=== PATIENT | female | born 2000 | race Caucasian/White ===

== ENCOUNTER 2023-02-22 07:52 | Emergency (ER) | payer MEDICAID, OTHER ==
[~2023-02-22] VITALS: Ht 165.1 cm; Wt 59.0 kg
[2023-02-22 07:59] VITALS: O2SAT 99
[2023-02-22] MEDS ORDERED: ONDANSETRON 4MG ODT PO STA (09:40)
[2023-02-22 10:05] LABS: HEMATOCRIT. 38.3 % (36.0-48.0); HEMOGLOBIN. 12.9 g/dL (12.0-16.0); MEAN CORPUSCULAR HEMOGLOBIN 31.1 pg (28.0-32.0); MEAN CORPUSCULAR HGB CONC 33.6 g/dL (31.0-37.0); MEAN CORPUSCULAR VOLUME 92.5 fL (81.0-99.0); MEAN PLATELET VOLUME 9.4 fl (7.4-10.4); PLATELET 253 x1000/uL (130-400); RED BLOOD CELL COUNT 4.14 mill/uL (4.2-5.4); RED CELL DISTRIBUTION WIDTH 13.2 % (11.6-14.6); WHITE BLOOD COUNT 7.2 x1000/uL (4.5-11.0)
[2023-02-22 10:10] LABS: CLARITY URINE CLEAR (CLEAR); COLOR URINE YELLOW (YELLOW)
[2023-02-22 10:11] LABS: GLUCOSE URINE NEGATIVE (NEGATIVE); KETONES URINE NEGATIVE (NEGATIVE); LEUKOCYTE ESTERASE URINE NEGATIVE (NEGATIVE); NITRITE URINE NEGATIVE (NEGATIVE); OCCULT BLOOD URINE NEGATIVE (NEGATIVE); PROTEIN URINE NEGATIVE (NEGATIVE); SPECIFIC GRAVITY URINE 1.015 (1.005-1.030); UROBILINOGEN URINE 0.2 E.U./dL (0.2-1.0)
[2023-02-22 10:14] LABS: DIFFERENTIAL COMMENT 1
[2023-02-22 10:18] LABS: ALANINE AMINOTRANSFERASE 8 IU/L (10-49); ALBUMIN 4.7 g/dL (3.2-4.8); ASPARTATE AMINOTRANSFERASE 18 IU/L (<34); BILIRUBIN TOTAL 0.5 mg/dL (0.1-1.0); CALCIUM 9.4 mg/dL (8.7-10.4); CARBON DIOXIDE 26 mEq/L (21-32); CHLORIDE 108 mEq/L (98-107); CREATININE 0.7 mg/dL (0.6-1.0); GLUCOSE 89 mg/dL (70-105); POTASSIUM 4.7 mEq/L (3.5-5.1); PROTEIN TOTAL 6.7 g/dL (6.0-8.3); SODIUM 141 mEq/L (136-145); UREA NITROGEN BLOOD 7 mg/dL (9-23)
[2023-02-22] MEDS ORDERED: ONDA4TAB50 MT ×2 (11:02)
[2023-02-22 11:14] VITALS: BP 109/57; PULSE 83; RESP 16; TEMP 98.4
[2023-02-22] MEDS ORDERED: TOPUD MT (11:14)
[2023-02-22] MEDS ORDERED: METO-293 MT (11:14)
[2023-02-22 11:52] LABS: PLATELET ESTIMATE NORMAL
== END 2023-02-22 11:36 | disposition home or self-care (01) ==
LOC: ER 07:52
DX: R42 Dizziness and giddiness (principal); R11.0 Nausea; I95.9 Hypotension, unspecified
CPT/HCPCS: 99283; 80053; 81003; 81025; 85025; 36415; Q0162

== ENCOUNTER 2023-05-23 22:20 | Emergency (ER) | payer MEDICAID ==
[~2023-05-23] VITALS: Ht 162.6 cm; Wt 54.0 kg
[~2023-05-23 22:20] MED LIST: METO-293 MT; TOPUD MT
[2023-05-23 22:44] VITALS: BP 107/66; O2SAT 100
[2023-05-23 22:48] VITALS: PULSE 106; RESP 16
[2023-05-24 02:12] LABS: CLARITY URINE CLEAR (CLEAR); COLOR URINE YELLOW (YELLOW); GLUCOSE URINE NEGATIVE (NEGATIVE); KETONES URINE NEGATIVE (NEGATIVE); LEUKOCYTE ESTERASE URINE NEGATIVE (NEGATIVE); NITRITE URINE NEGATIVE (NEGATIVE); OCCULT BLOOD URINE NEGATIVE (NEGATIVE); PH URINE 7.5 (4.5-8.0); PROTEIN URINE NEGATIVE (NEGATIVE); SPECIFIC GRAVITY URINE 1.015 (1.005-1.030)
[2023-05-24] MEDS ORDERED: NAPR500T7 PO (02:23)
[2023-05-24] MEDS ORDERED: DIPH25TA62 PO (02:23)
[2023-05-24] MEDS ORDERED: P50 MT (02:23)
[2023-05-24 02:25] LABS: *AMPHETAMINES SCREEN URINE NEGATIVE (NEGATIVE); *BARBITURATES SCREEN URINE NEGATIVE (NEGATIVE); *BENZODIAZEPINES SCREEN URINE NEGATIVE (NEGATIVE); *COCAINE SCREEN URINE NEGATIVE (NEGATIVE); CANNABINOID URINE SCREEN NEGATIVE (NEGATIVE); ECSTASY MDMA SCREEN URINE NEGATIVE (NEGATIVE); METHADONE URINE SCREEN Neg (NEGATIVE); OPIATES URINE SCREEN NEGATIVE (NEGATIVE); PHENCYCLIDINE URINE SCREEN NEGATIVE (NEGATIVE)
[2023-05-24 02:39] VITALS: TEMP 98.4
[2023-05-24] MEDS: METHYLPREDNISOLONE SOD SUCC 125MG/2ML (ACT-O-VIAL) IM ONE (02:39)
[2023-05-24] MEDS: DIPHENHYDRAMINE 25MG CAPSULE PO ONE (02:39)
[2023-05-24] MEDS: ACETAMINOPHEN 325MG TABLET PO STA (02:39)
[2023-05-24] MEDS: FAMOTIDINE 20MG TABLET PO ONE (02:39)
== END 2023-05-24 02:30 | disposition home or self-care (01) ==
LOC: ER 22:20
DX: L50.9 Urticaria, unspecified (principal); R51.9 Headache, unspecified
CPT/HCPCS: 81025; 99284; 80305; 81003; 96372; Q0163; J2930; Z7610 ×3

== ENCOUNTER 2024-05-08 17:00 | Emergency (ER) | payer MEDICAID, OTHER ==
[~2024-05-08] VITALS: Ht 167.6 cm; Wt 54.0 kg
[~2024-05-08 17:00] MED LIST changes: +DIPH25TA62 PO; +NAPR-1486 PO; +P50 MT
[2024-05-08 17:01] VITALS: PULSE 125; O2SAT 96
[2024-05-08 17:07] VITALS: BP 108/50; RESP 18; TEMP 37.1
== END 2024-05-08 18:43 | disposition left against medical advice (07) ==
LOC: ER 17:00
DX: T78.40XA Allergy, unspecified, initial encounter (principal); Z53.21 Procedure and treatment not carried out due to patient leaving prior to being seen by health care provider; X58.XXXA Exposure to other specified factors, initial encounter

== ENCOUNTER 2024-07-06 19:44 | Emergency (ER) | payer MEDICAID, OTHER ==
[~2024-07-06] VITALS: Ht 170.2 cm; Wt 58.3 kg
[2024-07-06 19:50] VITALS: BP 101/68; TEMP 36.7; O2SAT 99
[2024-07-06 19:51] VITALS: PULSE 85; RESP 18; O2SAT 96
[2024-07-06] MEDS ORDERED: LIDO700A15 TP (22:04)
[2024-07-06] MEDS ORDERED: NAPR-1176 MT (22:04)
== END 2024-07-06 23:24 | disposition home or self-care (01) ==
LOC: ER 19:44
DX: S93.409A Sprain of unspecified ligament of unspecified ankle, initial encounter (principal); Z79.1 Long term (current) use of non-steroidal anti-inflammatories (NSAID); Z88.0 Allergy status to penicillin; W19.XXXA Unspecified fall, initial encounter; Y93.89 Activity, other specified; Y92.89 Other specified places as the place of occurrence of the external cause; Y99.8 Other external cause status
CPT/HCPCS: 73610; 99283